=== PATIENT | female | born 1980 | race Two or more races ===

== ENCOUNTER 2018-02-17 22:12 | Emergency (ER) | payer OTHER ==
[~2018-02-17] VITALS: Ht 172.7 cm; Wt 70.5 kg
[2018-02-17 22:29] VITALS: BP 11/75
[2018-02-17] MEDS ORDERED: LIDOcaine 1.5% w/epinephrine 1:200,000 5ml ampul IJ ONE (23:50)
== END 2018-02-18 01:19 | disposition home or self-care (01) ==
LOC: ER 22:13
DX: S01.01XA Laceration without foreign body of scalp, initial encounter (principal); F10.120 Alcohol abuse with intoxication, uncomplicated; Y90.9 Presence of alcohol in blood, level not specified; W01.190A Fall on same level from slipping, tripping and stumbling with subsequent striking against furniture, initial encounter; Y93.89 Activity, other specified; Y92.89 Other specified places as the place of occurrence of the external cause; Y99.8 Other external cause status
CPT/HCPCS: 12001; 70450; 99284; J3490